=== PATIENT | male | born 1955 | race Caucasian/White ===

== ENCOUNTER 2016-10-17 19:27 | Emergency (ER) | payer OTHER ==
[2016-10-17 19:46] VITALS: BP 133/88; PULSE 88; RESP 16; TEMP 98; O2SAT 99
[2016-10-17] MEDS ORDERED: Sodium Chloride 0.9% 1,000 ML IV STA (20:04)
[2016-10-17 20:55] LABS: RBC URINE < 1 /hpf (0-3); URINE BILIRUBIN NEGATIVE (NEGATIVE); URINE BLOOD NEGATIVE (NEGATIVE); URINE COLOR YELLOW (YELLOW); URINE GLUCOSE (UA) NEG (Normal); URINE KETONE NEGATIVE (NEGATIVE); URINE LEUKOCYTE ESTERASE NEG Leu/uL (Negative); URINE PROTEIN NEGATIVE (NEGATIVE); URINE UROBILINOGEN 0.2-1.0 mg/dL (0.2-1.0); WBC URINE < 1 /hpf (0-5)
[2016-10-17 21:04] LABS: BASO % 0.4 % (0.0-2.0); EOS # 0.2 K/uL (0.0-0.7); HEMATOCRIT 43.3 % (35.0-51.0); LYMPH # 3.1 K/uL (1.0-4.3); LYMPH % 42.1 % (20.0-40.0); MEAN CELL VOLUME 88.7 fl (80.0-94.0); MEAN CORPUSCULAR HEMOGLOBIN 30.4 pg (27.0-31.0); MEAN CORPUSCULAR HGB CONC 34.2 g/dL (33.0-37.0); MEAN PLATELET VOLUME 9.1 fl (7.2-11.7); MONO # 0.7 K/uL (0.0-0.8); NEUT # 3.3 K/uL (1.8-7.0); NEUT % 44.5 % (50.0-75.0); NRBC % 0.3 % (0.0-0.0); RED CELL DISTRIBUTION WIDTH 13.4 % (11.5-14.5); WHITE BLOOD COUNT 7.4 K/uL (4.8-10.8)
--- NOTE | 2016-10-17 21:34 | ED PDOC ---
Hyperglycemia/Hypoglycemia Time Seen by Provider: 10/17/16 19:43 Chief Complaint (Nursing): Male Genitourinary Chief Complaint (Provider): Evaluation of Possible Hyperglycemia History Per: Patient History/Exam Limitations: no limitations Onset/Duration Of Symptoms: Other (x1 month) Current Symptoms Are (Timing): Still Present Current Diabetic Medications: None Associated Infectious Symptoms: Urinary Frequency, Other (Polydipsia) : The patient does not have any of the infectious symptoms listed except for those marked. Treatment Prior To Provider Evaluation: None Additional Complaint(s): 61 year old male presents to ED for an evaluation of possible hyperglycemia and has no past medical history. Patient notes increasing frequency/intensity of (+ ) urinary frequency, weakness, thirst, lightheadedness, and numbness to extremities x1 month. Notes that his twin brother who is also currently in the ED for the same complaint had elevated levels of hemoglobin a1c and would also like an evaluation of his symptoms. (+) malaise and fatigue. PCP: Jina [facility] - [place], [place] Past Medical History Reviewed: Historical Data, Nursing Documentation, Vital Signs Vital Signs: Last Vital Signs Temp 98.0 F 10/17/16 19:44 Pulse 88 10/17/16 19:44 Resp 16 10/17/16 19:44 BP 133/88 10/17/16 19:44 Pulse Ox 99 10/17/16 19:44 - Medical History PMH: No Chronic Diseases - Surgical History Surgical History: No Surg Hx - Family History Family History: States: No Known Family Hx - Social History Current smoker - smoking cessation education provided: No Ex-Smoker (has not smoked in the last 12 months): No Alcohol: None Drugs: Denies - Allergies Allergies/Adverse Reactions: Allergies Allergy/AdvReac Type Severity Reaction Status Date / Time No Known Allergies Allergy Verified 10/17/16 19:44 Review of Systems ROS Statement: Except As Marked, All Systems Reviewed And Found Negative Constitutional: Positive for: Weakness, Malaise Gastrointestinal: Positive for: Other (polydipsia) Genitourinary Male: Positive for: Frequency Neurological: Positive for: Numbness (to extremities), Other (lightheadedness) Physical Exam - Reviewed Nursing Documentation Reviewed: Yes Vital Signs Reviewed: Yes - Physical Exam Appears: Positive for: Non-toxic, No Acute Distress Head Exam: Positive for: ATRAUMATIC Skin: Positive for: Normal Color, Warm, Dry Eye Exam: Positive for: Normal appearance ENT: Positive for: Normal ENT Inspection Neck: Positive for: Normal Cardiovascular/Chest: Positive for: Regular Rate, Rhythm. Negative for: Murmur Respiratory: Negative for: Respiratory Distress Gastrointestinal/Abdominal: Positive for: Normal Exam Back: Positive for: Normal Inspection Extremity: Positive for: Normal ROM. Negative for: Deformity Neurologic/Psych: Positive for: Alert, Oriented. Negative for: Motor/Sensory Deficits - Laboratory Results Result Diagrams: 10/17/16 20:18 10/17/16 20:45 - ECG ECG: Positive for: Interpreted By Me ECG Rhythm: Positive for: Normal QRS, Normal ST Segment, Sinus Rhythm O2 Sat by Pulse Oximetry: 99 (RA) Pulse Ox Interpretation: Normal Medical Decision Making Medical Decision Makin Initial impression: diabetes DDx: dehydration, electrolyte abnormality, DKA, anemia, ACS Initial plan: * T&S * EKG * Labs * HgbA1C * Lipase * Magnesium * Phosphorus * TSH * Trop I * PTT/PT * NSIV * BCx * UCx * UA No clinically significant lab abnormalities. Pt exam unchanged. Advised f/u PMD for further management. Scribe Attestation: Documented by Apple Mosley acting as a scribe for Gillian Fong MD. Scribe Attestation: All medical record entries made by the Scribe were at my direction and personally dictated by me. I have reviewed the chart and agree that the record accurately reflects my personal performance of the history, physical exam, medical decision making, and the department course for this patient. I have also personally directed, reviewed, and agree with the discharge instructions and disposition. Disposition - Clinical Impression Clinical Impression: Weakness - Disposition Disposition: Routine/Home Disposition Time: 22:00 Condition: GOOD Additional Instructions: PLEASE FOLLOW UP WITH YOUR DOCTOR IN 1-2 WEEKS FOR FURTHER EVALUATION. Instructions: Weakness (ED)
[2016-10-17 21:36] LABS: PARTIAL THROMBOPLASTIN TIME 25.7 SECONDS (23.3-32.5)
[2016-10-17 22:10] LABS: ALB/GLOB RATIO 1.2 (1.0-2.1); ALKALINE PHOSPHATASE 83 U/L (38-126); ALT/SGPT 68 U/L (21-72); AST/SGOT 50 U/L (17-59); BILIRUBIN,TOTAL 0.3 mg/dl (0.2-1.3); BLOOD UREA NITROGEN 18 mg/dl (9-20); CALCIUM 8.9 mg/dL (8.4-10.2); CARBON DIOXIDE 24 mmol/L (22-30); CHLORIDE 107 mmol/L (98-107); GFR AFRICAN-AMERICAN > 60; GLUCOSE,RANDOM 80 mg/dL (75-110); LIPASE 79 U/L (23-300); PHOSPHOROUS 3.4 mg/dl (2.5-4.5); POTASSIUM 3.7 MMOL/L (3.6-5.0); SODIUM 141 mmol/l (132-148); TOTAL PROTEIN 7.7 G/DL (6.3-8.2)
[2016-10-17 22:46] LABS: THYROID STIMULATING HORMONE 2.04 mIU/ML (0.46-4.68)
--- NOTE | 2016-10-18 12:24 | CARD ---
APPROVED REPORT EKG Measurement Heart [id number] <Conclusion> Normal sinus rhythm Normal ECG
== END 2016-10-17 22:40 | disposition home or self-care (01) ==
LOC: H.ER 19:27
DX: M62.81 Muscle weakness (generalized) (principal); R42 Dizziness and giddiness; B95.2 Enterococcus as the cause of diseases classified elsewhere; E11.9 Type 2 diabetes mellitus without complications